=== PATIENT | female | born 1990 | race African-American/Black ===

== ENCOUNTER 2016-08-13 19:52 | Emergency (ER) | payer MEDICAID, OTHER ==
[~2016-08-13] VITALS: Ht 170.2 cm; Wt 79.4 kg
[2016-08-13 20:52] VITALS: BP 135/69
[2016-08-13] MEDS ORDERED: KETOROLAC TROMETHAMINE 60 MG/2 ML SYRINGE. IM ONE (22:00)
[2016-08-13] MEDS ORDERED: PROMETHAZINE IM 25 MG/ML VIAL IM ONE (22:00)
--- NOTE | 2016-08-13 22:22 | PHYS DOC ---
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 She reports photophobia and pain on the right side of her neck with the headache. She has also had nasal congestion for the past 4-5 months. With her headache today, she denies any vision changes, nausea, vomiting, dizziness, focal weakness or numbness, fever, sore throat, or ear pain. She tried taking Tylenol and using a nasal spray without relief of her pain. She does not take any regular home medications. Her PCP is Dr. Rangel. She has not seen Dr. Rangel for her sinus congestion previously. Review of Systems Review of Systems Constitutional: Denies fever or chills. [] Eyes: Denies change in visual acuity, redness, or eye pain. Reports photophobia. HENT: Denies ear pain or sore throat. Reports nasal congestion and sinus pressure. Respiratory: Denies cough or shortness of breath. [] GI: Denies abdominal pain, nausea, vomiting. [] Musculoskeletal: Denies back pain or joint pain. Reports right-sided neck pain. Integument: Denies rash or skin lesions. [] Neurologic: Denies dizziness, focal weakness or sensory changes. Reports frontal headache. All systems reviewed and negative unless otherwise stated in the HPI. Current Medications Current Medications Current Medications Medications (Trade) Dose Ordered Sig/Abdullahi Start Time Stop Time Status Last Admin Dose Admin Ketorolac Tromethamine (Toradol Im) 60 mg 1X ONCE 08/13/16 22:00 08/13/16 22:01 DC 08/13/16 21:57 60 MG Promethazine HCl (Phenergan Im) 25 mg 1X ONCE 08/13/16 22:00 08/13/16 22:01 DC 08/13/16 21:57 25 MG Allergies Allergies Allergies Coded Allergies Type Severity Reaction Last Updated Verified No Known Drug Allergies 08/21/14 No Physical Exam Physical Exam Constitutional: Well developed, well nourished, no acute distress, non-toxic appearance. [] HENT: Normocephalic, atraumatic, bilateral external ears normal, oropharynx moist, no oral exudates, nose normal. Bilateral TMs without erythema or bulging. There is no posterior pharyngeal erythema or tonsillar edema. Bilateral nasal turbinates are swollen and erythematous. Bilateral frontal and maxillary sinuses are tender to palpation. Eyes: PERRLA, EOMI, conjunctiva normal, no discharge. [] Neck: Normal range of motion, no tenderness, supple, no stridor. No nuchal rigidity or meningeal signs. Cardiovascular: Heart rate regular rhythm, no murmur [] Lungs & Thorax: Bilateral breath sounds clear to auscultation without wheezes, rales, or rhonchi. Skin: Warm, dry, no erythema, no rash. [] Back: No tenderness, no CVA tenderness. [] Neurologic: Alert and oriented X 3, normal motor function, normal sensory function, no focal deficits noted. CN II-XII grossly intact. Patient walks with normal steady gait without assistance. Psychologic: Affect normal, judgement normal, mood normal. [] Current Patient Data Vital Signs Vital Signs Date Time Temp Pulse Resp B/P Pulse Ox O2 Delivery O2 Flow Rate FiO2 08/13/16 20:52 98.1 69 16 100 Room Air 98.1 EKG EKG [] Radiology/Procedures Radiology/Procedures [] Course & Med Decision Making Course & Med Decision Making Pertinent Labs and Imaging studies reviewed. (See chart for details) Patient presents with gradual onset headache with photophobia today. She does not have a history of migraines but has had nasal congestion for the last 4-5 months. On exam, there is no nuchal rigidity or meningeal signs. There are no focal neurologic deficits. Patient's pain improved with IM Toradol and Phenergan. She is discharged home with prescription for Augmentin and Flonase. She is instructed to follow-up with her PCP. Return precautions were discussed. She verbalizes understanding and agrees with plan. Dragon Disclaimer Jaioron Disclaimer This electronic medical record was generated, in whole or in part, using a voice recognition dictation system. Departure Departure Impression: Primary Impression: Headache Additional Impression: Sinusitis Disposition: 01 HOME, SELF-CARE Condition: IMPROVED Referrals: LON RANGEL MD (PCP) Patient Instructions: Sinus Headache, [id number] Additional Instructions: Your headache appears to be due to a sinus infection. Please complete all the prescribed antibiotics, even if you are feeling better. Please use the prescribed nose spray on a daily basis to help with nasal congestion and sinus pressure. Please follow-up with your primary care doctor in 3-4 days, sooner if concerns. Return to the emergency department if you have any new or concerning symptoms. Scripts Amoxicillin/Potassium Clav (Amox Tr-K Clv 500-125 Mg Tab)1 Each Tablet1 Tab PO BID #14 TAB Prov:PAVITHRA ECHEVARRIA 08/13/16 Fluticasone Propionate (Flonase Allergy Relief)9.9 Ml [place].susp2 Sprays NS DAILY #1 BOTTLE Prov:PAVITHRA ECHEVARRIA 08/13/16 Problem Qualifiers Primary Impression: Headache Headache type: unspecified Headache chronicity pattern: acute headache Intractability: not intractable Qualified Code: R51 - Headache Additional Impression: Sinusitis Sinusitis location: unspecified location Chronicity: unspecified Qualified Code: J32.9 - Chronic sinusitis, unspecified PAVITHRA ECHEVARRIA Aug 13, 2016 22:22
[2016-08-13] MEDS ORDERED: AMOX1TAB10 PO (22:30)
[2016-08-13] MEDS ORDERED: FLUT9.9S NS (22:30)
== END 2016-08-13 22:47 | disposition home or self-care (01) ==
LOC: ER 19:52
DX: J32.9 Chronic sinusitis, unspecified (principal); F31.9 Bipolar disorder, unspecified; I10 Essential (primary) hypertension; F17.200 Nicotine dependence, unspecified, uncomplicated; Z98.51 Tubal ligation status
CPT/HCPCS: 81025; 96372; 99284; J1885; J2550

== ENCOUNTER 2017-05-18 15:32 | Emergency (ER) | payer OTHER ==
[~2017-05-18] VITALS: Ht 170.2 cm; Wt 108.9 kg
[~2017-05-18 15:32] MED LIST: AMOX1TAB10 PO; FLUT9.9S NS
--- NOTE | 2017-05-18 15:55 | PHYS DOC ---
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 Prior surgical history 3 and bilateral tubal ligation but no cholecystectomy no appendectomy. No recent antibiotic usage. Occasional alcohol use: daily tobacco Review of Systems Review of Systems Constitutional: Denies fever or chills [] Eyes: Denies change in visual acuity, redness, or eye pain [] HENT: Denies nasal congestion or sore throat [] Respiratory: Denies cough or shortness of breath [] Cardiovascular: No additional information not addressed in HPI [] GI: Denies abdominal pain, nausea, vomiting, bloody stools or diarrhea [] : Denies dysuria or hematuria [] Musculoskeletal: Denies back pain or joint pain [] Integument: Denies rash or skin lesions [] Neurologic: Denies headache, focal weakness or sensory changes [] Endocrine: Denies polyuria or polydipsia [] All other systems were reviewed and found to be within normal limits, except as documented in this note. Current Medications Current Medications Current Medications Medications (Trade) Dose Ordered Sig/Abdullahi Start Time Stop Time Status Last Admin Dose Admin Famotidine (Pepcid Vial) 20 mg 1X ONCE 05/18/17 16:00 05/18/17 16:01 DC 05/18/17 16:15 20 MG Hydromorphone HCl (Dilaudid) 0.5 mg 1X ONCE 05/18/17 16:00 05/18/17 16:01 DC 05/18/17 16:16 0.5 MG Ondansetron HCl (Zofran) 4 mg 1X ONCE 05/18/17 16:00 05/18/17 16:01 DC 05/18/17 16:16 4 MG Sodium Chloride 1,000 ml @ 1,000 mls/hr 1X ONCE 05/18/17 16:00 05/18/17 16:59 DC 05/18/17 16:15 1,000 MLS/HR Allergies Allergies Allergies Coded Allergies Type Severity Reaction Last Updated Verified No Known Drug Allergies 08/21/14 No Physical Exam Physical Exam Constitutional: Well developed, well nourished, no acute distress, non-toxic appearance. [] HENT: Normocephalic, atraumatic, bilateral external ears normal, oropharynx moist, no oral exudates, nose normal. [] Eyes: PERRLA, EOMI, conjunctiva normal, no discharge. [] Neck: Normal range of motion, no tenderness, supple, no stridor. [] Cardiovascular:Heart rate regular rhythm, no murmur [] Lungs & Thorax: Bilateral breath sounds clear to auscultation [] Abdomen: Bowel sounds normal, soft, mild epigastric tenderness, no masses, no pulsatile masses. [] Skin: Warm, dry, no erythema, no rash. [] Back: No tenderness, no CVA tenderness. [] Extremities: No tenderness, no cyanosis, no clubbing, ROM intact, no edema. [] Neurologic: Alert and oriented X 3, normal motor function, normal sensory function, no focal deficits noted. [] Psychologic: Affect normal, judgement normal, mood normal. [] Current Patient Data Vital Signs Vital Signs Date Time Temp Pulse Resp B/P (MAP) Pulse Ox O2 Delivery O2 Flow Rate FiO2 05/18/17 17:30 62 104/54 (71) 99 Room Air 05/18/17 16:16 16 05/18/17 15:40 98.8 98.8 Lab Values Laboratory Tests Test 05/18/17 15:45 05/18/17 15:47 05/18/17 16:13 Urine Collection Type Unknown Urine Color Yellow Urine Clarity Clear Urine pH 6.0 Urine Specific [place] 1.025 Urine Protein Negative mg/dL (NEG-TRACE) Urine Glucose (UA) Negative mg/dL (NEG) Urine Ketones (Stick) Trace mg/dL (NEG) Urine Blood Large (NEG) Urine Nitrite Negative (NEG) Urine Bilirubin Negative (NEG) Urine Urobilinogen Dipstick 0.2 mg/dL (0.2 mg/dL) Urine Leukocyte Esterase Negative (NEG) Urine RBC 6-10 /HPF (0-2) Urine WBC 1-4 /HPF (0-4) Urine Squamous Epithelial Cells Many /LPF Urine Bacteria Moderate /HPF (0-FEW) Urine Mucus Marked /LPF POC Urine HCG, Qualitative Hcg negative (Negative) White Blood Count 5.8 x10^3/uL (4.0-11.0) Red Blood Count 5.63 x10^6/uL (3.50-5.40) H Hemoglobin 12.4 g/dL (12.0-15.5) Hematocrit 39.0 % (36.0-47.0) Mean Corpuscular Volume 69 fL (79-100) L Mean Corpuscular Hemoglobin 22 pg (25-35) L Mean Corpuscular Hemoglobin Concent 32 g/dL (31-37) Red Cell Distribution Width 14.7 % (11.5-14.5) H Platelet Count 204 x10^3/uL (140-400) Neutrophils (%) (Auto) 78 % (31-73) H Lymphocytes (%) (Auto) 14 % (24-48) L Monocytes (%) (Auto) 5 % (0-9) Eosinophils (%) (Auto) 3 % (0-3) Basophils (%) (Auto) 0 % (0-3) Neutrophils # (Auto) 4.5 x10^3uL (1.8-7.7) Lymphocytes # (Auto) 0.8 x10^3/uL (1.0-4.8) L Monocytes # (Auto) 0.3 x10^3/uL (0.0-1.1) Eosinophils # (Auto) 0.2 x10^3/uL (0.0-0.7) Basophils # (Auto) 0.0 x10^3/uL (0.0-0.2) Platelet Estimate Adequate (ADEQUATE) Hypochromasia Mod Poikilocytosis Slight Microcytosis Mod Ovalocytes Few Sodium Level 138 mmol/L (136-145) Potassium Level 3.7 mmol/L (3.5-5.1) Chloride Level 102 mmol/L (98-107) Carbon Dioxide Level 28 mmol/L (21-32) Anion Gap 8 (6-14) Blood Urea Nitrogen 11 mg/dL (7-20) Creatinine 0.8 mg/dL (0.6-1.0) Estimated GFR (Cockcroft-Gault) 103.3 BUN/Creatinine Ratio 14 (6-20) Glucose Level 91 mg/dL (70-99) Calcium Level 8.9 mg/dL (8.5-10.1) Total Bilirubin 0.4 mg/dL (0.2-1.0) Aspartate Amino Transferase (AST) 20 U/L (15-37) Alanine Aminotransferase (ALT) 20 U/L (14-59) Alkaline Phosphatase 68 U/L (46-116) Total Protein 8.5 g/dL (6.4-8.2) H Albumin 3.7 g/dL (3.4-5.0) Albumin/Globulin Ratio 0.8 (1.0-1.7) L Lipase 116 U/L (73-393) Laboratory Tests 05/18/17 16:13 Laboratory Tests 05/18/17 16:13 EKG EKG [] Radiology/Procedures Radiology/Procedures Ultrasound gallbladder negative per radiology report[] Course & Med Decision Making Course & Med Decision Making Pertinent Labs and Imaging studies reviewed. (See chart for details) [Plan of care will be check labs urinalysis and ultrasound treat symptoms. Reexamination at 4:45 PM patient feels improved wants to go home. Labs were unremarkable ultrasound negative we will treat for gastritis with a PPI dismissed home.] Dragon Disclaimer Dragon Disclaimer This electronic medical record was generated, in whole or in part, using a voice recognition dictation system. Departure Departure Impression: Primary Impression: Acute abdominal pain Additional Impression: Gastritis Disposition: 01 HOME, SELF-CARE Condition: IMPROVED Referrals: LON RANGEL MD (PCP) Patient Instructions: Abdominal Pain (Nonspecific), Gastritis, Adult, Easy-to- Read Scripts Ondansetron (ZOFRAN ODT) 4 Mg Tab.rapdis 4 MG PO TID Y for NAUSEA/VOMITING, #10 TAB Prov: FRANCINE ARMANDO MD 05/18/17 Omeprazole Magnesium (PRILOSEC OTC) 20 Mg Tablet.dr 1 TAB PO DAILY, #10 TAB 3 Refills Prov: FRANCINE ARMANDO MD 05/18/17 Problem Qualifiers FRANCINE ARMANDO MD May 18, 2017 15:55
[2017-05-18] MEDS ORDERED: ONDANSETRON PF 4 MG/2 ML VIAL. IV ONE (16:00)
[2017-05-18] MEDS ORDERED: HYDROmorphone 2 MG/ML VIAL IV ONE (16:00)
[2017-05-18] MEDS ORDERED: FAMOTIDINE 20 MG/2 ML VIAL IVP ONE (16:00)
[2017-05-18] MEDS ORDERED: IV NORMAL SALINE 1000ML BAG 1,000 ML IV ONE (16:00)
[2017-05-18 16:04] LABS: BILIRUBIN,URINE NEGATIVE (NEG); GLUCOSE,URINE NEGATIVE (NEG); NITRITE,URINE NEGATIVE (NEG); PROTEIN,URINE NEGATIVE (NEG-TRACE); UROBILINOGEN,URINE 0.2 mg/dL (0.2 mg/dL)
[2017-05-18 16:11] LABS: BACTERIA,URINE MODERATE /HPF (0-FEW); SQUAMOUS EPITHELIAL CELL,UR MANY /LPF
[2017-05-18 16:25] LABS: BASO % 0 % (0-3); EOS % 3 % (0-3); HEMOGLOBIN 12.4 g/dL (12.0-15.5); LYMPH # 0.8 x10^3/uL (1.0-4.8); LYMPH % 14 % (24-48); MEAN CORPUSCULAR HEMOGLOBIN 22 pg (25-35); MEAN CORPUSCULAR HGB CONC 32 g/dL (31-37); MEAN CORPUSCULAR VOLUME 69 fL (79-100); MONO % 5 % (0-9); NEUT % 78 % (31-73); PLATELET COUNT 204 x10^3/uL (140-400); RED BLOOD COUNT 5.63 x10^6/uL (3.50-5.40); RED CELL DISTRIBUTION WIDTH 14.7 % (11.5-14.5); WHITE BLOOD COUNT 5.8 x10^3/uL (4.0-11.0)
--- NOTE | 2017-05-18 16:27 | RAD ---
Right upper quadrant abdominal ultrasound, 05/18/2017: History: Right upper quadrant pain The gallbladder is within normal limits in size. There is no sonographic evidence of cholelithiasis. The gallbladder hernandez are not thickened. No bile duct dilatation is seen. The visualized portions of the liver, pancreas and right kidney are unremarkable. IMPRESSION: No significant abnormality is detected.
[2017-05-18 17:02] LABS: PLT ESTIMATE ADEQUATE (ADEQUATE)
[2017-05-18 17:03] LABS: HYPOCHROMIA MOD; MICROCYTOSIS MOD; OVALOCYTES FEW; POIKILOCYTOSIS SLIGHT
[2017-05-18 17:04] LABS: CALCIUM 8.9 mg/dL (8.5-10.1); CREATININE 0.8 mg/dL (0.6-1.0); GFR 103.3; POTASSIUM 3.7 mmol/L (3.5-5.1)
[2017-05-18 17:08] LABS: ALBUMIN 3.7 g/dL (3.4-5.0); ALBUMIN/GLOBULIN RATIO 0.8 (1.0-1.7); TOTAL BILIRUBIN 0.4 mg/dL (0.2-1.0); TOTAL PROTEIN 8.5 g/dL (6.4-8.2)
[2017-05-18] MEDS ORDERED: OMEP20TA63 PO (17:21)
[2017-05-18] MEDS ORDERED: ONDA4TAB10 PO (17:21)
[2017-05-18 17:30] VITALS: BP 104/54
== END 2017-05-18 17:59 | disposition home or self-care (01) ==
LOC: ER 15:32
DX: K29.70 Gastritis, unspecified, without bleeding (principal); I10 Essential (primary) hypertension; E28.2 Polycystic ovarian syndrome; F31.9 Bipolar disorder, unspecified; Z98.51 Tubal ligation status; Z72.0 Tobacco use
CPT/HCPCS: 36415; 76705; 80053; 81001; 81025; 83690; 85025; 87086; 96361; 96374; 96375; 99285; J1170; J2405; J7030; S0028

== ENCOUNTER 2018-11-16 09:03 | Emergency (ER) | payer OTHER ==
[~2018-11-16] VITALS: Ht 170.2 cm; Wt 113.4 kg
[~2018-11-16 09:03] MED LIST changes: +OMEP20TA63 PO; +ONDA4TAB10 PO
[2018-11-16 09:45] LABS: BILIRUBIN,URINE NEGATIVE (NEG); CLARITY,URINE CLEAR; COLOR,URINE YELLOW; NITRITE,URINE NEGATIVE (NEG); PROTEIN,URINE NEGATIVE (NEG-TRACE); UROBILINOGEN,URINE 0.2 mg/dL (0.2 mg/dL)
[2018-11-16 09:55] LABS: BACTERIA,URINE 0 /HPF (0-FEW); HYALINE CASTS, URINE MANY /HPF; RBC,URINE 0 /HPF (0-2); SQUAMOUS EPITHELIAL CELL,UR MANY /LPF; WBC,URINE 0 /HPF (0-4)
[2018-11-16] MEDS ORDERED: CONTRAST GIVEN. MC PRN (10:00)
[2018-11-16] MEDS ORDERED: IOHEXOL 300 MG/ML 100ML VIAL. IV ONE ×2 (10:30→11:30)
[2018-11-16 11:00] LABS: BASO # 0.1 x10^3/uL (0.0-0.2); BASO % 1 % (0-3); EOS # 0.5 x10^3/uL (0.0-0.7); EOS % 7 % (0-3); HEMATOCRIT 35.8 % (36.0-47.0); LYMPH # 2.8 x10^3/uL (1.0-4.8); LYMPH % 43 % (24-48); MEAN CORPUSCULAR HEMOGLOBIN 21 pg (25-35); MEAN CORPUSCULAR HGB CONC 31 g/dL (31-37); MEAN CORPUSCULAR VOLUME 70 fL (79-100); MONO # 0.4 x10^3/uL (0.0-1.1); MONO % 7 % (0-9); NEUT # 2.8 x10^3uL (1.8-7.7); NEUT % 43 % (31-73); PLATELET COUNT 223 x10^3/uL (140-400); RED BLOOD COUNT 5.15 x10^6/uL (3.50-5.40); RED CELL DISTRIBUTION WIDTH 14.5 % (11.5-14.5); WHITE BLOOD COUNT 6.6 x10^3/uL (4.0-11.0)
[2018-11-16 11:24] LABS: HYPOCHROMIA PRESENT; MICROCYTOSIS PRESENT
[2018-11-16 11:32] LABS: PLT ESTIMATE ADEQUATE (ADEQUATE)
[2018-11-16 11:34] LABS: ALBUMIN 3.7 g/dL (3.4-5.0); CALCIUM 8.7 mg/dL (8.5-10.1); CREATININE 0.7 mg/dL (0.6-1.0); GFR 119.7; POTASSIUM 3.8 mmol/L (3.5-5.1); TOTAL BILIRUBIN 0.2 mg/dL (0.2-1.0); TOTAL PROTEIN 7.4 g/dL (6.4-8.2)
[2018-11-16 11:54] VITALS: BP 138/84
--- NOTE | 2018-11-16 12:16 | RAD ---
INDICATION: Left-sided abdominal pain COMPARISON: None. TECHNIQUE: Axial CT images obtained through the abdomen and pelvis with contrast. One or more of the following individualized dose reduction techniques were utilized for this examination: 1. Automated exposure control; 2. Adjustment of the mA and/or kV according to patient size; 3. Use of iterative reconstruction technique. FINDINGS: Abdominal aorta is not aneurysmal. Small fat-containing umbilical hernia. No intrahepatic bile duct dilation. Subcentimeter low-density lesion right lobe the liver, very common finding but too small to characterize. No peripancreatic fluid collection. Spleen unremarkable. No left-sided hydronephrosis. Urinary bladder partially distended. No right-sided hydronephrosis. No definite periappendiceal inflammation. No dilated loops of bowel to suggest obstruction. Mild haziness to the fat adjacent to the rectal region. IMPRESSION: 1. No evidence of bowel obstruction. 2. There is some mild haziness to the fat adjacent to the distal sigmoid and rectal region. This is a mild finding but would correlate with symptoms in the region to ensure that this is not secondary causes such as mild distal colitis. Electronically signed by: Eduard Rosenthal MD (11/16/2018 12:13 PM) [place] [id number]
[2018-11-16] MEDS ORDERED: DICY20TA3 PO (13:13)
--- NOTE | 2018-11-16 13:14 | PHYS DOC ---
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 Patient denies any nausea vomiting. Denies any diarrhea. Denies any chance she is . Denies anything exacerbating or relieving the pain. Denies any chance she is constipated. (CECELIA STRONG APRN) Review of Systems Review of Systems Constitutional: Denies fever or chills [] Eyes: Denies change in visual acuity, redness, or eye pain [] HENT: Denies nasal congestion or sore throat [] Respiratory: Denies cough or shortness of breath [] Cardiovascular: No additional information not addressed in HPI [] GI: Reports left lower quadrant abdominal pain, denies nausea, vomiting, bloody stools or diarrhea [] : Denies dysuria or hematuria [] Musculoskeletal: Denies back pain or joint pain [] Integument: Denies rash or skin lesions [] Neurologic: Denies headache, focal weakness or sensory changes [] All other systems were reviewed and found to be within normal limits, except as documented in this note. (CECELIA STRONG APRN) Current Medications Current Medications Current Medications Medications (Trade) Dose Ordered Sig/Abdullahi Start Time Stop Time Status Last Admin Dose Admin Dicyclomine HCl (Bentyl) 20 mg 1X ONCE 11/16/18 13:30 11/16/18 13:31 DC 11/16/18 13:08 20 MG Info (CONTRAST GIVEN -- Rx MONITORING) 1 each PRN DAILY PRN 11/16/18 10:00 11/16/18 14:49 DC Iohexol (Omnipaque 300 Mg/ml) 75 ml 1X ONCE 11/16/18 11:30 11/16/18 11:31 DC 11/16/18 11:52 75 ML Ketorolac Tromethamine (Toradol 30mg Vial) 30 mg 1X ONCE 11/16/18 13:30 11/16/18 13:31 DC 11/16/18 13:10 30 MG Ondansetron HCl (Zofran) 4 mg 1X ONCE 11/16/18 13:30 11/16/18 13:31 DC 11/16/18 13:09 4 MG (ELDON CARVER DO) Allergies Allergies Allergies Coded Allergies Type Severity Reaction Last Updated Verified No Known Drug Allergies 08/21/14 No (ELDON CARVER DO) Physical Exam Physical Exam Constitutional: Well developed, well nourished, no acute distress, non-toxic appearance. [] HENT: Normocephalic, atraumatic, bilateral external ears normal, oropharynx moist, no oral exudates, nose normal. [] Eyes: PERRLA, EOMI, conjunctiva normal, no discharge. [] Neck: Normal range of motion, no tenderness, supple, no stridor. [] Cardiovascular:Heart rate regular rhythm, no murmur [] Lungs & Thorax: Bilateral breath sounds clear to auscultation [] Abdomen: Bowel sounds normal, soft, no right upper quadrant tenderness, no right lower quadrant tenderness, negative Doe sign, negative psoas sign, negative obturator sign, no guarding, no masses, no pulsatile masses. [] Skin: Warm, dry, no erythema, no rash. [] Back: No tenderness, no CVA tenderness. [] Extremities: No tenderness, no cyanosis, no clubbing, ROM intact, no edema. [] Neurologic: Alert and oriented X 3, normal motor function, normal sensory function, no focal deficits noted. [] Psychologic: Affect normal, judgement normal, mood normal. [] (CECELIA STRONG APRN) Current Patient Data Vital Signs Vital Signs Date Time Temp Pulse Resp B/P (MAP) Pulse Ox O2 Delivery O2 Flow Rate FiO2 11/16/18 11:54 62 20 138/84 (102) 98 Room Air 11/16/18 09:18 98.5 98.5 (ELDON CARVER DO) Lab Values Laboratory Tests Test 11/16/18 09:10 11/16/18 09:31 11/16/18 10:40 Urine Collection Type Unknown Urine Color Yellow Urine Clarity Clear Urine pH 5.0 Urine Specific [place] >=1.030 Urine Protein Negative mg/dL (NEG-TRACE) Urine Glucose (UA) Negative mg/dL (NEG) Urine Ketones (Stick) Negative mg/dL (NEG) Urine Blood Moderate (NEG) Urine Nitrite Negative (NEG) Urine Bilirubin Negative (NEG) Urine Urobilinogen Dipstick 0.2 mg/dL (0.2 mg/dL) Urine Leukocyte Esterase Negative (NEG) Urine RBC 0 /HPF (0-2) Urine WBC 0 /HPF (0-4) Urine Squamous Epithelial Cells Many /LPF Urine Bacteria 0 /HPF (0-FEW) Urine Hyaline Casts Many /HPF POC Urine HCG, Qualitative Hcg negative (Negative) White Blood Count 6.6 x10^3/uL (4.0-11.0) Red Blood Count 5.15 x10^6/uL (3.50-5.40) Hemoglobin 11.0 g/dL (12.0-15.5) L Hematocrit 35.8 % (36.0-47.0) L Mean Corpuscular Volume 70 fL (79-100) L Mean Corpuscular Hemoglobin 21 pg (25-35) L Mean Corpuscular Hemoglobin Concent 31 g/dL (31-37) Red Cell Distribution Width 14.5 % (11.5-14.5) Platelet Count 223 x10^3/uL (140-400) Neutrophils (%) (Auto) 43 % (31-73) Lymphocytes (%) (Auto) 43 % (24-48) Monocytes (%) (Auto) 7 % (0-9) Eosinophils (%) (Auto) 7 % (0-3) H Basophils (%) (Auto) 1 % (0-3) Neutrophils # (Auto) 2.8 x10^3uL (1.8-7.7) Lymphocytes # (Auto) 2.8 x10^3/uL (1.0-4.8) Monocytes # (Auto) 0.4 x10^3/uL (0.0-1.1) Eosinophils # (Auto) 0.5 x10^3/uL (0.0-0.7) Basophils # (Auto) 0.1 x10^3/uL (0.0-0.2) Platelet Estimate Adequate (ADEQUATE) Hypochromasia Present Microcytosis Present Sodium Level 142 mmol/L (136-145) Potassium Level 3.8 mmol/L (3.5-5.1) Chloride Level 106 mmol/L (98-107) Carbon Dioxide Level 28 mmol/L (21-32) Anion Gap 8 (6-14) Blood Urea Nitrogen 13 mg/dL (7-20) Creatinine 0.7 mg/dL (0.6-1.0) Estimated GFR (Cockcroft-Gault) 119.7 BUN/Creatinine Ratio 19 (6-20) Glucose Level 88 mg/dL (70-99) Calcium Level 8.7 mg/dL (8.5-10.1) Total Bilirubin 0.2 mg/dL (0.2-1.0) Aspartate Amino Transferase (AST) 17 U/L (15-37) Alanine Aminotransferase (ALT) 27 U/L (14-59) Alkaline Phosphatase 50 U/L (46-116) Total Protein 7.4 g/dL (6.4-8.2) Albumin 3.7 g/dL (3.4-5.0) Albumin/Globulin Ratio 1.0 (1.0-1.7) Lipase 99 U/L (73-393) Laboratory Tests 11/16/18 10:40 Laboratory Tests 11/16/18 10:40 Microbiology 11/16/18 Wet Prep - Final, Complete (ELDON CARVER DO) EKG EKG [] (CECELIA STRONG APRN) Radiology/Procedures Radiology/Procedures []PROCEDURE: CT ABD PELV W/ IV CONTRST ONLY INDICATION: Left-sided abdominal pain COMPARISON: None. TECHNIQUE: Axial CT images obtained through the abdomen and pelvis with contrast. One or more of the following individualized dose reduction techniques were utilized for this examination: 1. Automated exposure control; 2. Adjustment of the mA and/or kV according to patient size; 3. Use of iterative reconstruction technique. FINDINGS: Abdominal aorta is not aneurysmal. Small fat-containing umbilical hernia. No intrahepatic bile duct dilation. Subcentimeter low-density lesion right lobe the liver, very common finding but too small to characterize. No peripancreatic fluid collection. Spleen unremarkable. No left-sided hydronephrosis. Urinary bladder partially distended. No right-sided hydronephrosis. No definite periappendiceal inflammation. No dilated loops of bowel to suggest obstruction. Mild haziness to the fat adjacent to the rectal region. IMPRESSION: 1. No evidence of bowel obstruction. 2. There is some mild haziness to the fat adjacent to the distal sigmoid and rectal region. This is a mild finding but would correlate with symptoms in the region to ensure that this is not secondary causes such as mild distal colitis. Electronically signed by: Susan Milligan MD (11/16/2018 12:13 PM) [id number] DICTATED and SIGNED BY: SUSAN MILLIGAN MD DATE: 11/16/18 1213 (CECELIA STRONG APRN) Course & Med Decision Making Course & Med Decision Making Pertinent Labs and Imaging studies reviewed. (See chart for details) This is a 28-year-old female patient presenting to the ED today with left lower quadrant abdominal pain, symptoms began today, no nausea vomiting. No diarrhea. Negative urine hCG, urine analysis is negative for infection, CBC with a normal WBC, CMP with nothing really acute. Patient was given Toradol, Zofran, symptoms are improved. Also given dicyclomine. CT of the abdomen and pelvic was negative for any acute findings, radiologist thought maybe patient could have colitis. Patient does not have all the symptoms that qualify for colitis dx. patient was discharged to home. Given prescription for dicyclomine. Provided GI for follow-up. (ECCELIA STRONG APRN) Dragon Disclaimer Dragon Disclaimer This electronic medical record was generated, in whole or in part, using a voice recognition dictation system. (CECELIA STRONG APRN) Departure Departure Impression: Primary Impression: Left lower quadrant pain Disposition: HOME, SELF-CARE Condition: STABLE Referrals: CHANTELLE PADILLA (PCP) follow up in 1 week JOY MORFIN MD follow up in 1 week Patient Instructions: Abdominal Pain Additional Instructions: You were evaluated in the emergency room abdominal pain. Please rest, push fl uids. Take the prescribed medications as needed for pain. We also recommended you follow-up with the cement production plant operator provided. Come back to the ED at any point symptoms worsen. Scripts Dicyclomine Hcl (DICYCLOMINE HCL) 20 Mg Tablet 1 TAB PO TID, #30 TAB 1 Refill Prov: CECELIA STRONG APRN 11/16/18 Attending Signature Attending Signature I have reviewed the PA/MEDICAL RECORDS ASSISTANT's note and plan of care. I was available for consultation as needed during the patient's visit in the emergency department. I agree with the clinical impression, plan, and disposition. (ELDON CARVER DO) ZHENGSaranCECELIA PRICE November 16, 2018 13:14 ELDON CARVER DO November 17, 2018 13:24
[2018-11-16] MEDS ORDERED: DICYCLOMINE HCL 10 MG CAPSULE PO ONE (13:30)
[2018-11-16] MEDS ORDERED: KETOROLAC 30 MG/ML VIAL. IV ONE (13:30)
[2018-11-16] MEDS ORDERED: ONDANSETRON PF 4 MG/2 ML VIAL. IV ONE (13:30)
[2018-11-17 20:10] LABS: GC PROBE Negative (Negative)
== END 2018-11-16 13:23 | disposition home or self-care (01) ==
LOC: ER 09:03
DX: R10.32 Left lower quadrant pain (principal); F31.9 Bipolar disorder, unspecified; I10 Essential (primary) hypertension; Z98.51 Tubal ligation status
CPT/HCPCS: 36415; 74177; 80053; 81001; 81025; 83690; 85025; 87491; 87591; 96374; 96375; 99285; J1885; J2405; Q0111; Q9967

== ENCOUNTER 2019-02-27 09:17 | Emergency (ER) | payer OTHER ==
[~2019-02-27] VITALS: Ht 170.2 cm; Wt 116.2 kg
[~2019-02-27 09:17] MED LIST changes: +DICY20TA3 PO
[2019-02-27 09:30] VITALS: BP 152/89
[2019-02-27] MEDS ORDERED: METH4TAB2 PO (10:25)
[2019-02-27] MEDS ORDERED: DOXY100C2 PO (10:25)
[2019-02-27] MEDS ORDERED: BENZ100C PO (10:25)
[2019-02-27] MEDS ORDERED: ALBU2.5V8 INH (10:25)
--- NOTE | 2019-02-27 10:25 | PHYS DOC ---
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 Patient complaining of cough with yellow sputum, nasal congestion, headache and body aches for the last 3 days without fever and chills, chest pain, sick contact, vomiting and diarrhea, sick contact. Patient states she took [id number] medication without improvement of her condition. Review of Systems Review of Systems Constitutional: Denies fever or chills [] Eyes: Denies change in visual acuity, redness, or eye pain [] HENT: Reports nasal congestion or sore throat Respiratory: Reports cough Cardiovascular: No additional information not addressed in HPI [] GI: Denies abdominal pain, nausea, vomiting, bloody stools or diarrhea [] : Denies dysuria or hematuria [] Musculoskeletal: Denies back pain or joint pain [] Integument: Denies rash or skin lesions [] Neurologic: Denies headache, focal weakness or sensory changes [] Endocrine: Denies polyuria or polydipsia [] All other systems were reviewed and found to be within normal limits, except as documented in this note. Allergies Allergies Allergies Coded Allergies Type Severity Reaction Last Updated Verified No Known Drug Allergies 08/21/14 No Physical Exam Physical Exam Constitutional: Well nourished, mild distress, non-toxic appearance. [] HENT: Normocephalic, atraumatic, normal tympanic membrane, no exudate, no tonsillar edema or erythema. Eyes: PERRLA, EOMI, conjunctiva normal, no discharge. [] Neck: Normal range of motion, no tenderness, supple, no stridor. [] Cardiovascular:Heart rate regular rhythm, no murmur [] Lungs & Thorax: Bilateral breath sounds clear to auscultation [] Skin: Warm, dry, no erythema, no rash. [] Back: No tenderness, no CVA tenderness. [] Extremities: No tenderness, no cyanosis, no clubbing, ROM intact, no edema. [] Neurologic: Alert and oriented X 3, no focal deficits noted. [] Psychologic: Affect anxious. Current Patient Data Vital Signs Vital Signs Date Time Temp Pulse Resp B/P (MAP) Pulse Ox O2 Delivery O2 Flow Rate FiO2 02/27/19 09:30 98.8 82 18 152/89 (110) 99 Room Air 98.8 EKG EKG [] Radiology/Procedures Radiology/Procedures [] Course & Med Decision Making Course & Med Decision Making discharge: I've spoken with the patient and/or caregivers. I've explained the patient's condition, diagnosis and treatment plan based on information available to me at this time. I've answered the patient's and/or caregivers questions and addressed any concerns. The patient and/or caregivers have a good understanding the patient's diagnosis, condition and treatment plan as can be expected at this point. Vital signs have been stabilized. The patient's condition is stable for discharge from the emergency department. The patient will pursue further outpatient evaluation with her primary care provider or other designated consulting physician as outlined in the discharge instructions. Patient and/or caregivers are agreeable to this plan of care and follow-up instructions have been explained in detail. The patient and/or caregivers have received these instructions in written format and expressed understanding of these discharge instructions. The patient and her caregivers are aware that if any significant change in condition or worsening of symptoms should prompt him to immediately return to this of the closest emergency d epartment. If an emergent department is not readily available I would encourage him to call 911. Mahendra Disclaimer Dragon Disclaimer This electronic medical record was generated, in whole or in part, using a voice recognition dictation system. Departure Departure Impression: Primary Impression: Acute bronchitis Disposition: HOME, SELF-CARE (1021) Condition: STABLE Referrals: CHANTELLE PADILLA (PCP) Patient Instructions: Acute Bronchitis Additional Instructions: Drink plenty of liquids Follow-up with your primary care physician in 3-5 days Return to ER if not getting better Scripts Benzonatate (TESSALON PERLE) 100 Mg Capsule 1 CAP PO TID for cough, #21 CAP Prov: SAMMIE SORENSEN MD 02/27/19 Methylprednisolone (MEDROL) 4 Mg Tab.ds.pk 1 PKG PO UD for inflammation, #1 PKG Prov: SAMMIE SORENSEN MD 02/27/19 Albuterol Sulfate (PROAIR HFA INHALER) 8.5 Gm Hfa.aer.ad 2 PUFF INH PRN Q6HRS PRN for SHORTNESS OF BREATH, #1 INHALER 0 Refills Prov: SAMMIE SORENSEN MD 02/27/19 Doxycycline Hyclate (DOXYCYCLINE HYCLATE) 100 Mg Capsule 1 CAP PO BID, #14 CAP Prov: SAMMIE SORENSEN MD 02/27/19 Problem Qualifiers Primary Impression: Acute bronchitis Bronchitis organism: unspecified organism Qualified Codes: J20.9 - Acute bronchitis, unspecified SAMMIE SORENSEN MD Feb 27, 2019 10:25
== END 2019-02-27 10:35 | disposition home or self-care (01) ==
LOC: ER 09:17
DX: J20.9 Acute bronchitis, unspecified (principal); F31.9 Bipolar disorder, unspecified; I10 Essential (primary) hypertension; F17.210 Nicotine dependence, cigarettes, uncomplicated; Z98.890 Other specified postprocedural states; Z98.51 Tubal ligation status
CPT/HCPCS: 99283

== ENCOUNTER → 2019-08-16 | Outpatient (CLI) | payer OTHER ==
[~2019-08-16] MED LIST changes: +ALBU2.5V8 INH; +BENZ100C PO; +DOXY100C2 PO; +METH4TAB2 PO
[2019-08-16 16:42] LABS: BASO # 0.1 x10^3/uL (0.0-0.2); BASO % 1 % (0-3); EOS # 0.3 x10^3/uL (0.0-0.7); EOS % 5 % (0-3); HEMATOCRIT 37.9 % (36.0-47.0); LYMPH # 2.9 x10^3/uL (1.0-4.8); LYMPH % 37 % (24-48); MEAN CORPUSCULAR HEMOGLOBIN 22 pg (25-35); MEAN CORPUSCULAR HGB CONC 32 g/dL (31-37); MEAN CORPUSCULAR VOLUME 69 fL (79-100); MONO # 0.4 x10^3/uL (0.0-1.1); MONO % 6 % (0-9); NEUT % 52 % (31-73); PLATELET COUNT 231 x10^3/uL (140-400); RED BLOOD COUNT 5.51 x10^6/uL (3.50-5.40); RED CELL DISTRIBUTION WIDTH 15.8 % (11.5-14.5); WHITE BLOOD COUNT 7.8 x10^3/uL (4.0-11.0)
[2019-08-16 17:24] LABS: FREE T4 0.96 ng/dL (0.76-1.46); THYROID STIM HORMONE (TSH) 1.609 uIU/mL (0.358-3.74)
[2019-08-16 17:38] LABS: ANISOCYTOSIS SLIGHT; HYPOCHROMIA MOD; MICROCYTOSIS MARKED; PLT ESTIMATE ADEQUATE (ADEQUATE); POLYCHROMASIA SLIGHT; SCHISTOCYTES OCC
== END | disposition home or self-care (01) ==
LOC: LAB 16:16
PROVIDERS: ATTEND Obstetrics & Gynecology
DX: N93.9 Abnormal uterine and vaginal bleeding, unspecified (principal); N80.0 Endometriosis of uterus
CPT/HCPCS: 36415; 84146; 84439; 84443; 85025